=== PATIENT | male | born 1950 | race Caucasian/White ===

== ENCOUNTER → 2018-08-16 | Outpatient (CLI) | payer OTHER ==
[~2018-08-16] MED LIST: ACIDOPHILUS1 EAC3 PO; ALLEGRA180 MG PO; ASPIRIN EC81 M1 PO; ATENOLOL 25 MG25 M1 PO; ATENOLOL 50MG T50 M1 PO; B-121000 MCG PO; B12INJ PO; COUMADIN 5 MG TA5 M1 PO; DELTA D3400 UNIT PO; ENDOCET 5-3251 EACH PO; FLAX SEED OIL1000 MG PO; GLUCOSAMINE &1 EAC1 PO; GLUCOSAMINE &1 EACH PO; HYDROCODON-ACE1 EAC7 PO; IRON325 PO; MULTIVITAMINS1 EAC7 PO; PACERONE 200 M200 M1 PO; PHISOHEX148 ML TRANSDERM; PROBIOTIC1 EAC1 PO; SENOKOT-S1 TA1 PO; VITAMIN B-1100 M1 PO
== END ==
LOC: HYPER 06:52
DX: L89.322 Pressure ulcer of left buttock, stage 2 (principal); K74.60 Unspecified cirrhosis of liver; K76.0 Fatty (change of) liver, not elsewhere classified; I10 Essential (primary) hypertension; Z95.4 Presence of other heart-valve replacement; Z86.010 Personal history of colon polyps